=== PATIENT | male | born 1970 | race Two or more races ===

== ENCOUNTER 2024-06-11 12:55 | Outpatient (AMB) | payer MEDICAID, SELFPAY ==
[2024-06-11 13:11] VITALS: BP 115/77; PULSE 65; RESP 19; TEMP 36.8; O2SAT 95; BMI 31.6
--- NOTE | 2024-06-11 13:11 | PD.GSCLVISIT ---
Vital Signs - [facility] 06/11/24 13:11 Height 1.65 m Height Method Stated Weight 86.324 kg Weight Measurement Method Standing Scale BMI 31.6 BP 115/77 Blood Pressure Source Automatic Cuff Blood Pressure Location Left Upper Arm Position Sitting Respiration 19 Pulse 65 Pulse Source Monitor Temp 98.2 F Temp Source Temporal Artery Scan Pulse Oximetry (%) 95 Oxygen Delivery Method Room Air Med/Allergies Allergies & Medications Allergies No Known Allergies Allergy (Verified 06/11/24 13:12) Medication Reconciliation No Known Home Medications 06/11/24 [History Confirmed 06/11/24] MA Intake Visit Data Collection New Patient or Established: New Patient (never been to [facility]) Seen by Clinical Staff ONLY (RN/MA): No Reason for Visit:: POSITIVE FOBT REFERRAL Pain Present Currently: No It Support Manager Required: Yes PCP or OBGYN visit in last 3 months: Yes Hx Now: No Do You Feel Safe at Home: Yes Authorities Contacted: N/A Smoking Status Smoking Status: Never smoker Immunization / Flu Flu Vaccine in the Last 12 Months: Yes Flu Vaccine Exclusion Criteria: Already Received Past Medical History Social History SMOKING STATUS: Smoking status: Never smoker HPI HPI Narrative Spoke to pt with in-person healthcare interpreter 54M referred for +FOBT. Pt reports he took the test a few months ago, but he denies any changes in stool caliber, blood in stool, anorexia and unintentional weight loss. He feels very well overall, has not yet had a colonoscopy PMH: None PSHx: Ankle surgery for fracture Meds: None Allergies: NKDA Family hx: No known malignancies ROS Review of Systems Systems Reviewed: All systems reviewed, normal except as documented Objective/Exam General General Appearance: alert, cooperative and well groomed Resp Respiratory exam: Absent respiratory distress Assessment & Plan Diagnosis / Problem List (1) Fecal occult blood test positive: Status: Acute Assessment & Plan: 54M referred for +FOBT requiring diagnostic colonoscopy. I explained the procedure including MAC sedation, prep as well as risks of bleeding, perforation and the potential that I will need to abort prematurely for safety. All questions were answered and pt is agreeable to proceeding Office Procedures GNS Level of Care Nursing/Assessment Patient Status: Initial/New Patient Nursing Assessment/Reassesment: Medication Reconciliation, Update PMH in EMR and Vital Signs Coordination of Care: Complex Care and Chronic Disease 1-5, Consent,records obtained, informed consent, Education Simp Pt/Fam, 1 Ins Authorization, Results/Orders obtained and Staff clarify orders New Patient Charge New Patient Point Assignment: 1104 New Patient Point Charge: DISABILITY COORDINATOR Level 3 ([id number]) Patient Portal Questionaires Social History Tobacco History Smoking Status: Never smoker Domestic Abuse History Do You Feel Safe at Home: Yes Review of Systems Report any current symptoms Only answer those that you have currently: Past Medical History Past Medical History Have you ever been diagnosed with any of the following:
== END 2024-06-11 13:35 | disposition home or self-care (01) ==
PROVIDERS: PCP Physician Assistant; Referring Provider Physician Assistant; Supervising Provider Surgery; Visit Provider Surgery
DX: R19.5 Other fecal abnormalities (principal)
CPT/HCPCS: 99203; G0463

== ENCOUNTER 2024-07-12 06:55 | Day surgery (SDC) | payer MEDICAID, SELFPAY ==
[2024-07-11 14:46] VITALS: BMI 31.1
[2024-07-12] VITALS (11 sets, daily range): BP systolic 112–139; BP diastolic 56–96; PULSE 54–79; RESP 12–20; TEMP 36.2–36.8; O2SAT 93–97; BMI 30.7
[2024-07-12] MEDS: RINGERS LACTATED 1000 ML 1,000 ML 20 ML IV (08:29)
[2024-07-12] MEDS: MIDAZOLAM INJ 1 MG/ML VIAL 2 ML (ASD USE ONLY) 2 MG IV (08:31)
[2024-07-12] MEDS: DiphenhydrAMINE INJ 50 MG/ML VIAL 25 MG IV (08:32)
[2024-07-12] MEDS: fentaNYL CIT INJ 50 mCg/ML AMP 2ML (ASD USE ONLY) IV (08:43)
== END 2024-07-12 09:43 | disposition home or self-care (01) ==
PROVIDERS: PCP Physician Assistant; Referring Provider Surgery; Visit Provider Surgery
PROC: 0DBE8ZX Excision of Large Intestine, Via Natural or Artificial Opening Endoscopic, Diagnostic (ICD-10-PCS; CPT 45380; principal; 2024-07-12 12:15)
DX: K64.8 Other hemorrhoids (principal)
CPT/HCPCS: 45378; J1200; J2250; J3010; J7120

== ENCOUNTER 2024-07-30 12:58 | Outpatient (AMB) | payer MEDICAID, SELFPAY ==
[2024-07-30 13:09] VITALS: BP 122/81; PULSE 74; RESP 18; TEMP 36.4; O2SAT 94; BMI 32.3
--- NOTE | 2024-07-30 13:09 | GSCOFFNT_ITS ---
Vital Signs - [facility] 07/30/24 13:09 Height 1.65 m Height Method Stated Weight 88.252 kg Weight Measurement Method Standing Scale BMI 32.3 BP 122/81 Blood Pressure Source Automatic Cuff Blood Pressure Location Right Upper Arm Position Sitting Respiration 18 Pulse 74 Pulse Source Monitor Temp 97.5 F Temp Source Temporal Artery Scan Pulse Oximetry (%) 94 L Oxygen Delivery Method Room Air Med/Allergies Allergies & Medications Allergies No Known Allergies Allergy (Verified 07/12/24 07:32) MA Intake Visit Data Collection New Patient or Established: Established Patient (seen at [facility] within 3 years) Reason for Visit:: F/U ON COLONOSCOPY Pain Present Currently: No Appellate Court Clerk Required: Yes PCP or OBGYN visit in last 3 months: Yes Do You Feel Safe at Home: Yes Authorities Contacted: N/A Smoking Status Smoking Status: Never smoker Immunization / Flu Flu Vaccine in the Last 12 Months: Yes Flu Vaccine Exclusion Criteria: Already Received Past Medical History Past Medical History NEUROLOGIC: Negative Neurological Disorders or Seizures CARDIAC: Negative Cardiac Disorders or Congestive Heart Failure RESPIRATORY: Negative Chronic Obstructive Pulmonary Disease (COPD) GASTROINTESTINAL: Negative Gastrointestinal Disorders GENITOURINARY: Negative Genitourinary Disorders or Renal Disease MUSCULOSKELETAL: Positive Arthritis ENDOCRINE: Negative Endocrine Disorders, Diabetes Mellitus Type 1 or Diabetes Mellitus Type 2 HEMATOLOGIC: Negative Blood Disorders OTHER HISTORY: Negative Hospitalization, Falls, Blood Transfusions, Blood Transfusion Reaction, Anesthesia Reactions or Cancer Surgical History SURGICAL: Positive Open Reduction Internal Fixation (left ankle) Social History SMOKING STATUS: Smoking status: Never smoker ALCOHOL: Alcohol Intake: Current Travel Risk Travel Hx Recent Travel: No HPI HPI Narrative Spoke to pt with in-person water tester 54M s/p diagnostic colonoscopy done for +FOBT with findings of internal hemorrhoids here to discuss results. Pt reports feeling well overall, he has no abdominal pain and no symptoms of hemorrhoids ROS Review of Systems Systems Reviewed: All systems reviewed, normal except as documented Objective/Exam General General Appearance: alert, cooperative and well groomed Resp Respiratory exam: Absent respiratory distress Results Colonoscopy report reviewed Assessment & Plan Diagnosis / Problem List (1) Encounter to discuss colonoscopy results: Status: Acute Assessment & Plan: 54M s/p colonoscopy for +FOBT 07/2024 with findings of internal hemorrhoids, otherwise negative. As he is at average risk for colon CA his next colonoscopy is due in 10 years. All questions were answered and pt expressed understanding Office Procedures GNS Level of Care Nursing/Assessment Patient Status: Established Patient Nursing Assessment/Reassesment: Medication Reconciliation, Update PMH in EMR and Vital Signs Coordination of Care: Complex Care and Chronic Disease 1-5, Education Complex Pt/Fam, Consent,records obtained, informed consent, Results/Orders obtained and Staff clarify orders Special Needs: Language special needs Established Patient Charge Established Patient Point Assignment: 95 Established Patient Point Charge: EP Level 3 (80-115) Patient Portal Questionaires Social History Tobacco History Smoking Status: Never smoker Alcohol History Alcohol Intake: Current Domestic Abuse History Do You Feel Safe at Home: Yes Review of Systems Report any current symptoms Only answer those that you have currently: Past Medical History Past Medical History Have you ever been diagnosed with any of the following: Neurological Problems Seizures: No Cardiology Problems Congestive Heart Failure: No Respiratory Problems Chronic Obstructive Pulmonary Disease (COPD): No Genital/Urinary Problems Renal Disease: No Musculoskeletal Problems Arthritis: Yes Endocrine Problems Diabetes Mellitus Type 1: No Diabetes Mellitus Type 2: No Other Problems Hospitalization: No Falls: No Blood Transfusions: No Blood Transfusion Reaction: No Anesthesia Reactions: No Cancer: No
== END 2024-07-30 13:54 | disposition home or self-care (01) ==
LOC: HODSRG 12:58
PROVIDERS: PCP Physician Assistant; Referring Provider Physician Assistant; Supervising Provider Surgery; Visit Provider Surgery
DX: Z71.2 Person consulting for explanation of examination or test findings (principal); K64.8 Other hemorrhoids
CPT/HCPCS: 99213; G0463

== ENCOUNTER 2024-08-23 09:55 | Outpatient (AMB) | payer MEDICAID, SELFPAY ==
[2024-08-23 10:08] VITALS: BP 121/85; PULSE 66; RESP 18; TEMP 36.8; O2SAT 94; BMI 31.7
--- NOTE | 2024-08-23 10:08 | PD.ORTHCLVIS ---
Vital signs 08/23/24 10:08 Height 1.65 m Height Method Stated Weight 86.381 kg Weight Measurement Method Standing Scale BMI 31.7 BP 121/85 H Blood Pressure Source Automatic Cuff Blood Pressure Location Left Upper Arm Position Sitting Respiration 18 Pulse 66 Pulse Source Monitor Temp 98.3 F Temp Source Temporal Artery Scan Pulse Oximetry (%) 94 L Oxygen Delivery Method Room Air Med/Allergies Allergies & Medications Allergies No Known Allergies Allergy (Verified 08/23/24 10:10) Medication Reconciliation meloxicam 7.5 mg tablet 7.5 mg PO QDAY #45 tabs 08/23/24 [Rx] Exam Exam Patient is in no acute distress and is cooperative with the examination today. Breathing is nonlabored. Patient has a normal mood and affect. The patient has a gait that is nonantalgic Bilateral extremities were evaluated and demonstrates sensation intact to light touch. Palpable pedal pulses are present. No significant edema is present. Bilateral hips were examined. The patient has no pain with log roll of the hips. Internal rotation to 0. He has a positive logroll and [place] Left knee was examined today. The left knee is in reasonable alignment. Range of motion from 0-120 degrees. Knee is stable to varus and valgus as well as AP translation with <5mm. Patient has a negative McMurrays. There is no pain with patellofemoral compression and no crepitus noted. The knee is nontender to palpation. The right knee was also examined. The right knee is in neutral alignment. Range of motion from 0-120 degrees. Knee is stable to varus and valgus as well as AP translation with <5mm. Patient has a negative McMurrays. There is no pain with patellofemoral compression and no crepitus noted. The knee is tender to palpation laterally I have no physical x-rays to review Assessment and Plan Problem List (1) Right leg pain: Status: Acute Plan: Patient is a pleasant 54-year-old male with right buttocks, right hip, and right knee pain. This been ongoing for a while. Has not tried significant steroid treatment. We will start with meloxicam. I would also need to review x-rays of all these joints. I am pretty sure his significant arthritis given that he has no internal rotation. I would also like to see his Knee and spine films Office Procedures GNS Level of Care Nursing/Assessment Patient Status: Initial/New Patient Nursing Assessment/Reassesment: Medication Reconciliation and Update PMH in EMR Coordination of Care: Complex Care and Chronic Disease 1-5, Consent,records obtained, informed consent, 1 Ins Authorization, Ref for ancillary service, Results/Orders obtained and Staff clarify orders Special Needs: Language special needs ([place] ) New Patient Charge New Patient Point Assignment: 1094 New Patient Point Charge: EXECUTIVE VICE PRESIDENT AND CHIEF OPERATING OFFICER Level 3 ([id number]) MA Intake Visit Data Collection New Patient or Established: Established Patient (seen at [facility] within 3 years) Reason for Visit:: RT KNEE PAIN Seen by Clinical Staff ONLY (RN/MA): No Fire Range Technician Required: Yes PCP or OBGYN visit in last 3 months: Yes Hx Now: No Do You Feel Safe at Home: Yes Authorities Contacted: N/A Questionairres Past Medical History Past Medical History Have you ever been diagnosed with any of the following: Neurological Problems Seizures: No Cardiology Problems Congestive Heart Failure: No Respiratory Problems Chronic Obstructive Pulmonary Disease (COPD): No Smoking Exposure: No Tobacco Use: No Clubbing: No Exposure to Respiratory Irritants: No Genital/Urinary Problems Renal Disease: No Musculoskeletal Problems Arthritis: Yes Endocrine Problems Diabetes Mellitus Type 1: No Diabetes Mellitus Type 2: No Other Problems Hospitalization: No Falls: No Blood Transfusions: No Blood Transfusion Reaction: No Anesthesia Reactions: No Cancer: No Subjective Visit Visit for: new patient and knee (RT KNEE ) Immunization / Flu Flu Vaccine in the Last 12 Months: Yes Flu Vaccine Exclusion Criteria: Already Received History of Present Illness Chief complaint: Right hip pain and knee pain and back pain Patient is a pleasant 64-year-old male with significant pain in the buttocks as well as the thigh and right knee. This been ongoing for a while. He has not had no significant treatment including any anti-inflammatories. He has tried Tylenol in the past. He is using a crutch because of the pain Personal History Red flag PMH: none Pain Pain level (0-10): 7 Pain duration: 01/2024 Pain location: anterior Pain quality: sharp Pain timing: night Associated signs & symptoms: numbness, weakness and stiffness Ambulatory data Ambulatory device: other (specify) (CRUTCH ) Walking distance (minutes): 1 Treatments Number of previous injections: 0 Number of Physical Therapy sessions: 0 Improvement with NSAIDS: n/a Review of Systems Review of Systems: All systems negative unless otherwise noted in HPI.
--- NOTE | 2024-08-23 10:17 | XR_ITS ---
Examination: Bilateral AP knees single view Standing lateral, standing PA flexion, axial right knee 3 views TECHNIQUE: Bilateral AP knees standing single view Standing lateral, standing PA flexion, axial right knee 3 views total 4 views Date and time: August 23, 2024 1035 hours INDICATIONS: Right knee pain beginning 2 years ago. FINDINGS: Mild osteopenia. Moderate narrowing medial joint spaces bilaterally Mild osteoarthritis right patellofemoral joint No fractures IMPRESSION: Moderate narrowing medial joint spaces bilaterally Mild osteoarthritis right patellofemoral joint
--- NOTE | 2024-08-23 10:17 | XR_ITS ---
Examination:Right hip AP, lateral, AP pelvis 3 views Technique: Hip AP lateral, AP pelvis, 3 views Exam date and time:11/23/2024 1035 hours INDICATIONS: Right hip pain beginning 6 months ago. FINDINGS: Severe right hip osteoarthritis, severe joint space narrowing Sclerosis and radiolucency in the femoral head consistent with avascular necrosis Moderate to advanced narrowing left hip joint IMPRESSION: Severe right hip osteoarthritis Avascular necrosis right femoral head.
--- NOTE | 2024-08-23 10:17 | XR_ITS ---
Examination: Lumbar spine 3 views Technique one AP lateral coned lateral lower lumbar spine 3 views Date and time: August 23, 2024 1054 hours INDICATIONS: Low back pain beginning 6 months ago. FINDINGS: Adequate alignment lumbar vertebral bodies Moderate to advanced diffuse lumbar degenerative disc disease Prominent lumbar spondylosis No fracture IMPRESSION: Prominent lumbar spondylosis Diffuse moderate to advanced lumbar degenerative disc disease
== END 2024-08-23 10:20 | disposition home or self-care (01) ==
PROVIDERS: PCP Physician Assistant; Referring Provider Physician Assistant; Supervising Provider Orthopaedic Surgery Adult Reconstructive Orthopaedic Surgery; Visit Provider Orthopaedic Surgery Adult Reconstructive Orthopaedic Surgery
DX: M79.604 Pain in right leg (principal); M17.11 Unilateral primary osteoarthritis, right knee; M16.11 Unilateral primary osteoarthritis, right hip; M87.851 Other osteonecrosis, right femur; M47.816 Spondylosis without myelopathy or radiculopathy, lumbar region; M51.369 Other intervertebral disc degeneration, lumbar region without mention of lumbar back pain or lower extremity pain
CPT/HCPCS: 72100; 73502; 73564; 99203; G0463

== ENCOUNTER 2024-09-04 09:59 | Outpatient (AMB) | payer MEDICAID, SELFPAY ==
[2024-09-04 10:10] VITALS: BP 112/73; PULSE 59; RESP 18; TEMP 36.5; O2SAT 94; BMI 31.8
--- NOTE | 2024-09-04 10:10 | ORTHONT_ITS ---
Vital signs 09/04/24 10:10 Height 1.65 m Height Method Stated Weight 86.636 kg Weight Measurement Method Standing Scale BMI 31.8 BP 112/73 Blood Pressure Source Automatic Cuff Blood Pressure Location Right Upper Arm Position Sitting Respiration 18 Pulse 59 L Pulse Source Monitor Temp 97.7 F Temp Source Temporal Artery Scan Pulse Oximetry (%) 94 L Oxygen Delivery Method Room Air Med/Allergies Allergies & Medications Allergies No Known Allergies Allergy (Verified 09/04/24 10:11) Medication Reconciliation meloxicam 7.5 mg tablet 7.5 mg PO QDAY #45 tabs 08/23/24 [Rx Confirmed 09/04/24] Exam Exam Patient is in no acute distress and is cooperative with the examination today. Breathing is nonlabored. Patient has a normal mood and affect. The patient has a gait that is nonantalgic Bilateral extremities were evaluated and demonstrates sensation intact to light touch. Palpable pedal pulses are present. No significant edema is present. Bilateral hips were examined. The patient has no pain with log roll of the hips. Internal rotation to 0. He has a positive logroll and [facility] Left knee was examined today. The left knee is in reasonable alignment. Range of motion from 0-120 degrees. Knee is stable to varus and valgus as well as AP translation with <5mm. Patient has a negative McMurrays. There is no pain with patellofemoral compression and no crepitus noted. The knee is nontender to palpation. The right knee was also examined. The right knee is in neutral alignment. Range of motion from 0-120 degrees. Knee is stable to varus and valgus as well as AP translation with <5mm. Patient has a negative McMurrays. There is no pain with patellofemoral compression and no crepitus noted. The knee is tender to pal pation laterally Right knee x-rays demonstrates mild to moderate arthritis. The right hip demonstrates severe avascular necrosis with degenerative changes. The spine also demonstrates significant degenerative changes. Assessment and Plan Problem List (1) Right leg pain: Status: Acute Plan: Patient is a pleasant 54-year-old male with right buttocks, right hip, and right knee pain. This has been ongoing for a while. He has significant right hip avascular necrosis. I also think he has significant spine issues and that this is likely a large source of his pain as he has a positive shopping cart sign and a lot of numbness and tingling in his leg. I would probably recommend a back workup first. His hip will likely need to be replaced as well as he has severe avascular necrosis We will see him back after lumbar spine MRI and we will likely refer him to a spine physician Office Procedures GNS Level of Care Nursing/Assessment Patient Status: Established Patient Nursing Assessment/Reassesment: Medication Reconciliation, Update PMH in EMR and Vital Signs Coordination of Care: Complex Care and Chronic Disease 1-5, Education Complex Pt/Fam, Consent,records obtained, informed consent, Results/Orders obtained and Staff clarify orders Special Needs: Language special needs Established Patient Charge Established Patient Point Assignment: 95 Established Patient Point Charge: EP Level 3 (80-115) MA Intake Visit Data Collection New Patient or Established: Established Patient (seen at [facility] within 3 years) Reason for Visit:: F/U XRAYS Seen by Clinical Staff ONLY (RN/MA): No Verbal consent obtained for Telemed visit?: No Hand Cloth Examiner Required: Yes PCP or OBGYN visit in last 3 months: Yes Hx Now: No Do You Feel Safe at Home: Yes Authorities Contacted: N/A Questionairres Past Medical History Past Medical History Have you ever been diagnosed with any of the following: Neurological Problems Seizures: No Cardiology Problems Congestive Heart Failure: No Respiratory Problems Chronic Obstructive Pulmonary Disease (COPD): No Smoking Exposure: No Tobacco Use: No Clubbing: No Exposure to Respiratory Irritants: No Genital/Urinary Problems Renal Disease: No Musculoskeletal Problems Arthritis: Yes Endocrine Problems Diabetes Mellitus Type 1: No Diabetes Mellitus Type 2: No Other Problems Hospitalization: No Falls: No Blood Transfusions: No Blood Transfusion Reaction: No Anesthesia Reactions: No Cancer: No Subjective Visit Visit for: follow up visit and x-rays Immunization / Flu Flu Vaccine in the Last 12 Months: Yes Flu Vaccine Exclusion Criteria: Already Received History of Present Illness Chief complaint: F/U XRAYS Patient is a pleasant 64-year-old male with significant pain in the buttocks as well as the thigh and right knee. This been ongoing for a while. He has not had no significant treatment including any anti-inflammatories. He has tried Tylenol in the past. He is using a crutch because of the pain. He reports that when he uses a shopping cart or a walker he has no pain at all as he is leaning forward. Personal History Occupation: [employer] Red flag PMH: BMI Pain Pain level (0-10): 5 Pain duration: ALL DAY Pain location: inside (medial), outside (lateral), anterior and posterior Pain quality: sharp, dull and aching Pain timing: increases with activity Associated signs & symptoms: stiffness Ambulatory data Ambulatory device: other (specify) (CRUTCHES) Walking distance (minutes): 1 Treatments Number of previous injections: 0 Improvement with previous injections: No Number of Physical Therapy sessions: 0 Improvement with PT: No Improvement with NSAIDS: no Review of Systems Review of Systems: All systems negative unless otherwise noted in HPI.
== END 2024-09-04 10:42 | disposition home or self-care (01) ==
LOC: HODSRG 09:59
PROVIDERS: PCP Physician Assistant; Referring Provider Physician Assistant; Supervising Provider Orthopaedic Surgery Adult Reconstructive Orthopaedic Surgery; Visit Provider Orthopaedic Surgery Adult Reconstructive Orthopaedic Surgery
DX: M25.561 Pain in right knee (principal); M25.551 Pain in right hip; M87.88 Other osteonecrosis, other site
CPT/HCPCS: 99213; G0463

== ENCOUNTER → 2024-10-19 | Outpatient (CLI) | payer MEDICAID, SELFPAY ==
--- NOTE | 2024-10-19 09:00 | XR_ITS ---
Examination: MRI lumbar spine without contrast Date and time of exam: October 19, 2024 0943 hours INDICATIONS: Lower back pain rated down the right leg beginning one year ago Technique: Multiple MRI axial and sagittal sections lumbar spine. Sagittal T2-weighted images, TR 3500, TE 118 T1 weighted transverse sections, TR 688 T8.5, T2-weighted sagittal sections T1 weighted sagittal sections TR 621, TE 30 T2 axial sections, TR 4, 190, TE 84. Findings: Adequate alignment lumbar vertebral bodies No lumbar fracture. Moderate disc narrowing L2-L3, L4-L5. Diffuse lumbar disc desiccation No spondylolisthesis L5-S1 no disc protrusion L4-L5 5 mm central lumbar disc bulge indenting the ventral margin thecal sac, extending to the right foramen with mild right L4 ganglionic compression L3-L4 no disc protrusion L2-L3 6 mm central lumbar disc bulge L1-L2 no disc protrusion IMPRESSION: L4-L5 5 mm central lumbar disc bulge extending to the right foramen with mild right L4 ganglionic compression L2-L3 6 mm central lumbar disc bulge
== END | disposition home or self-care (01) ==
LOC: SMRI 08:32
PROVIDERS: Referring Provider Orthopaedic Surgery Adult Reconstructive Orthopaedic Surgery; Visit Provider Orthopaedic Surgery Adult Reconstructive Orthopaedic Surgery
DX: M51.360 Other intervertebral disc degeneration, lumbar region with discogenic back pain only (principal); G95.20 Unspecified cord compression
CPT/HCPCS: 72148

== ENCOUNTER 2025-01-29 14:40 | Outpatient (AMB) | payer MEDICAID, SELFPAY ==
--- NOTE | 2025-01-29 14:50 | PD.ORTHCLVIS ---
Vital signs 01/29/25 14:51 Height 1.65 m Height Method Stated Weight 84.028 kg Weight Measurement Method Standing Scale BMI 30.9 BP 107/67 Blood Pressure Source Automatic Cuff Blood Pressure Location Left Upper Arm Position Sitting Respiration 18 Pulse 75 Pulse Source Monitor Temp 97.6 F Temp Source Temporal Artery Scan Pulse Oximetry (%) 95 Oxygen Delivery Method Room Air Med/Allergies Allergies & Medications Allergies No Known Allergies Allergy (Verified 01/29/25 14:51) Medication Reconciliation meloxicam 7.5 mg tablet 7.5 mg PO QDAY #45 tabs 08/23/24 [Rx Confirmed 01/29/25] Exam Exam Patient is in no acute distress and is cooperative with the examination today. Breathing is nonlabored. Patient has a normal mood and affect. The patient has a gait that is nonantalgic Bilateral extremities were evaluated and demonstrates sensation intact to light touch. Palpable pedal pulses are present. No significant edema is present. Bilateral hips were examined. The patient has no pain with log roll of the hips. Internal rotation to 0. He has a positive logroll and Stinchfield Left knee was examined today. The left knee is in reasonable alignment. Range of motion from 0-120 degrees. Knee is stable to varus and valgus as well as AP translation with <5mm. Patient has a negative McMurrays. There is no pain with patellofemoral compression and no crepitus noted. The knee is nontender to palpation. The right knee was also examined. The right knee is in neutral alignment. Range of motion from 0-120 degrees. Knee is stable to varus and valgus as well as AP translation with <5mm. Patient has a negative McMurrays. There is no pain with patellofemoral compression and no crepitus noted. The knee is tender to palpation laterally Right knee x-rays demonstrates mild to moderate arthritis. The right hip demonstrates severe avascular necrosis with degenerative changes. The spine also demonstrates significant degenerative changes. Lumbar spine MRI demonstrates significant stenosis at L2-3 and L5-S1 Assessment and Plan Problem List (1) Right leg pain: Status: Acute (2) Spinal stenosis: Status: Acute Plan: Patient is a 54-year-old right hip arthritis and avascular porosis as well as significant spinal stenosis. On exam, he examines like the pain is primarily from his back as the pain starts in his buttock and radiates all the way down his leg and there is associated numbness and tingling. He actually does not have significant pain with logroll. He does have limited internal rotation.. We discussed with him that I think his primary symptoms are from his back as she is reporting a lot of back issues. We discussed that his hip provocative back exam is actually relatively benign. I would first get his back exercises if significant disc herniations at 2 levels causing central canal stenosis. The patient will need a spine referral as he has significant spine pathology. Office Procedures GNS Level of Care Nursing/Assessment Patient Status: Established Patient Nursing Assessment/Reassesment: Medication Reconciliation, Update PMH in EMR and Vital Signs Coordination of Care: Complex Care and Chronic Disease 1-5, Education Complex Pt/Fam, Consent,records obtained, informed consent, Results/Orders obtained and Staff clarify orders Special Needs: Language special needs Established Patient Charge Established Patient Point Assignment: 95 MA Intake Visit Data Collection New Patient or Established: Established Patient (seen at [facility] within 3 years) Reason for Visit:: HIP PAIN Seen by Clinical Staff ONLY (RN/MA): No Verbal consent obtained for Telemed visit?: No Education Program Coordinator Required: Yes PCP or OBGYN visit in last 3 months: Yes Hx Now: No Do You Feel Safe at Home: Yes Authorities Contacted: N/A Questionairres Past Medical History Past Medical History Have you ever been diagnosed with any of the following: Neurological Problems Seizures: No Cardiology Problems Congestive Heart Failure: No Respiratory Problems Chronic Obstructive Pulmonary Disease (COPD): No Smoking Exposure: No Tobacco Use: No Clubbing: No Exposure to Respiratory Irritants: No Genital/Urinary Problems Renal Disease: No Musculoskeletal Problems Arthritis: Yes Endocrine Problems Diabetes Mellitus Type 1: No Diabetes Mellitus Type 2: No Other Problems Hospitalization: No Falls: No Blood Transfusions: No Blood Transfusion Reaction: No Anesthesia Reactions: No Cancer: No Subjective Visit Visit for: follow up visit and x-rays Immunization / Flu Flu Vaccine in the Last 12 Months: Yes Flu Vaccine Exclusion Criteria: Already Received History of Present Illness Chief complaint: HIP PAIN Patient is a pleasant 64-year-old male with significant pain in the buttocks as well as the thigh and right knee. This been ongoing for a while. He has not had no significant treatment including any anti-inflammatories. He has tried Tylenol in the past. He is using a crutch because of the pain. He reports that when he uses a shopping cart or a walker he has no pain at all as he is leaning forward. He returns for evaluation and has no pain in his groin. He obtained an MRI since we last saw him Personal History Occupation: [employer] Red flag PMH: BMI Pain Pain level (0-10): 5 Pain duration: ALL DAY Pain location: inside (medial), outside (lateral), anterior and posterior Pain quality: sharp, dull and aching Pain timing: increases with activity Associated signs & symptoms: stiffness Ambulatory data Ambulatory device: other (specify) (CRUTCHES) Walking distance (minutes): 1 Treatments Number of previous injections: 0 Improvement with previous injections: No Number of Physical Therapy sessions: 0 Improvement with PT: No Improvement with NSAIDS: no Review of Systems Review of Systems: All systems negative unless otherwise noted in HPI.
[2025-01-29 14:51] VITALS: BP 107/67; PULSE 75; RESP 18; TEMP 36.4; O2SAT 95; BMI 30.9
== END 2025-01-29 15:00 | disposition home or self-care (01) ==
LOC: HODSRG 14:40
PROVIDERS: Supervising Provider Orthopaedic Surgery Adult Reconstructive Orthopaedic Surgery; Visit Provider Orthopaedic Surgery Adult Reconstructive Orthopaedic Surgery
DX: M79.651 Pain in right thigh (principal); M16.11 Unilateral primary osteoarthritis, right hip; M87.851 Other osteonecrosis, right femur; M48.061 Spinal stenosis, lumbar region without neurogenic claudication
CPT/HCPCS: 99214; G0463